=== PATIENT | female | born 1940 | race African-American/Black ===

== ENCOUNTER 2023-06-02 12:15 | Inpatient (IN) | payer MEDICARE, OTHER ==
[~2023-06-02] VITALS: Ht 162.6 cm; Wt 66.7 kg
[2023-06-02] MEDS ORDERED: BUSP10TA3 PO (12:41)
[2023-06-02] MEDS ORDERED: SERT100T PO (12:41)
[2023-06-02] MEDS ORDERED: DONE5TAB34 PO (12:41)
[2023-06-02] MEDS ORDERED: LOSA50TA39 PO (12:41)
[2023-06-02] MEDS ORDERED: QUET25TA PO (12:41)
[2023-06-02 12:48] LABS: BASOPHILS % (AUTO) 0.2 % (0.0-2.0); EOSINOPHILS # (AUTO) 0.1 K/uL (0.0-0.7); EOSINOPHILS % (AUTO) 0.8 % (0.0-7.0); HEMATOCRIT 38.4 % (31.2-41.9); HEMOGLOBIN 12.6 g/dL (10.9-14.3); LYMPHOCYTES # (AUTO) 1.6 K/uL (0.8-4.8); LYMPHOCYTES % (AUTO) 17.1 % (20.5-51.5); MEAN CORPUSCULAR HEMOGLOBIN 31.3 uug (24.7-32.8); MEAN CORPUSCULAR HGB CONC 33 g/dL (32.3-35.6); MEAN CORPUSCULAR VOLUME 95.2 fL (75.5-95.3); MONOCYTES # (AUTO) 0.7 K/uL (0.1-1.30); MONOCYTES % (AUTO) 7.4 % (0.0-11.0); NEUTROPHILS # (AUTO) 6.9 K/uL (1.8-8.9); NEUTROPHILS % (AUTO) 74.5 % (38.5-71.5); PLATELET COUNT (AUTO) 315 K/uL (179-408); RED BLOOD CELL COUNT(AUTO) 4.03 MIL/uL (3.63-4.92); WHITE BLOOD COUNT (AUTO) 9.3 K/uL (3.8-11.8)
[2023-06-02 13:12] LABS: DIFFERENTIAL COMMENT 1
[2023-06-02 13:22] LABS: ALANINE AMINOTRANSFERASE 23 U/L (14-59); ALKALINE PHOSPHATASE 121 U/L (50-136); ASPARTATE AMINOTRANSFERASE 32 U/L (15-37); BILIRUBIN,DIRECT 0.1 mg/dL (0.0-0.2); BILIRUBIN,TOTAL 0.5 mg/dL (0.2-1.0); CARBON DIOXIDE 27 mmol/L (21-32); CHLORIDE 107 mmol/L (98-107); CREATININE 1.3 mg/dL (0.6-1.3); GLUCOSE 101 mg/dL (74-106); POTASSIUM 4.1 mmol/L (3.5-5.1); SODIUM SERUM 144 mmol/L (136-145); TOTAL PROTEIN, SERUM 7.1 g/dL (6.4-8.2); UREA NITROGEN, BLOOD 21 mg/dL (7-18)
[2023-06-02 13:36] LABS: CALCIUM 9.8 mg/dL (8.5-10.1)
[2023-06-02] MEDS ORDERED: HYDROCODONE/APAP 5-325MG TABLET PO PRN (18:15)
[2023-06-02] MEDS ORDERED: TEMAZEPAM 15 MG CAPSULE PO PRN (18:15)
[2023-06-02] MEDS ORDERED: MAGNESIUM HYDROXIDE 30 ML LIQUID UDC PO PRN (18:15)
[2023-06-02] MEDS ORDERED: ONDANSETRON 4 MG/2 ML VIAL IV PRN (18:15)
[2023-06-02] MEDS ORDERED: ACETAMINOPHEN 325 MG TABLET PO PRN (18:15)
[2023-06-02 21:20] VITALS: BP 142/68; TEMP 98.5; O2SAT 96
[2023-06-02] MEDS: QUETIAPINE FUMARATE 25 MG TABLET PO SCH (21:36)
[2023-06-02] MEDS: IV 1/2NS 1000 ML 1,000 ML IV PRN (23:03)
[2023-06-03 05:00] VITALS: BP 119/62; TEMP 97.7; O2SAT 98
[2023-06-03] MEDS: PANTOPRAZOLE SODIUM 40 MG TABLET.DR PO SCH (06:03)
[2023-06-03 06:37] LABS: BASOPHILS % (AUTO) 0.3 % (0.0-2.0); EOSINOPHILS # (AUTO) 0.2 K/uL (0.0-0.7); EOSINOPHILS % (AUTO) 2.1 % (0.0-7.0); LYMPHOCYTES # (AUTO) 3.1 K/uL (0.8-4.8); LYMPHOCYTES % (AUTO) 37.4 % (20.5-51.5); MEAN CORPUSCULAR HEMOGLOBIN 31.7 uug (24.7-32.8); MEAN CORPUSCULAR HGB CONC 33 g/dL (32.3-35.6); MEAN CORPUSCULAR VOLUME 95.3 fL (75.5-95.3); MONOCYTES # (AUTO) 0.6 K/uL (0.1-1.30); MONOCYTES % (AUTO) 7.8 % (0.0-11.0); NEUTROPHILS # (AUTO) 4.4 K/uL (1.8-8.9); NEUTROPHILS % (AUTO) 52.4 % (38.5-71.5); PLATELET COUNT (AUTO) 308 K/uL (179-408); RED BLOOD CELL COUNT(AUTO) 3.78 MIL/uL (3.63-4.92); RED CELL DISTRIBUTION WIDTH 14.1 % (12.3-17.7); WHITE BLOOD COUNT (AUTO) 8.3 K/uL (3.8-11.8)
[2023-06-03 06:54] LABS: DIFFERENTIAL COMMENT 1
[2023-06-03 06:58] LABS: THYROID STIMULATING HORMONE 1.515 mIU/mL (0.358-3.740)
[2023-06-03 07:06] LABS: ALANINE AMINOTRANSFERASE 20 U/L (14-59); ALBUMIN 2.7 g/dL (3.4-5.0); ALKALINE PHOSPHATASE 107 U/L (50-136); BILIRUBIN,TOTAL 0.5 mg/dL (0.2-1.0); CALCIUM 9.3 mg/dL (8.5-10.1); CARBON DIOXIDE 27 mmol/L (21-32); CHLORIDE 108 mmol/L (98-107); CREATINE KINASE, TOTAL 295 U/L (26-192); CREATININE 1.3 mg/dL (0.6-1.3); GLUCOSE 88 mg/dL (74-106); MAGNESIUM 2.2 mg/dL (1.8-2.4); NT-PRO BNP 35 pg/mL (0-125); PHOSPHOROUS 3.8 mg/dL (2.5-4.9); POTASSIUM 4.1 mmol/L (3.5-5.1); SODIUM SERUM 141 mmol/L (136-145); TOTAL PROTEIN, SERUM 6.3 g/dL (6.4-8.2); UREA NITROGEN, BLOOD 25 mg/dL (7-18)
[2023-06-03 07:47] LABS: ASPARTATE AMINOTRANSFERASE 28 U/L (15-37); CHOLESTEROL 163 mg/dL (<200); HDL CHOLESTEROL 56 mg/dL (40-60); TRIGLYCERIDES 72 MG/DL (30-150)
[2023-06-03] MEDS: busPIRone 10 MG TABLET PO SCH ×2 (08:30→17:37)
[2023-06-03] MEDS: SERTRALINE HCL 100 MG TABLET PO SCH (08:30)
[2023-06-03] MEDS: CARISOPRODOL 350 MG TABLET PO PRN (15:23)
[2023-06-03 16:04] VITALS: BP 102/65; TEMP 97.5; O2SAT 96
[2023-06-03] MEDS: DONEPEZIL 5 MG TABLET PO SCH (17:37)
[2023-06-03 19:00] VITALS: BP 129/64; TEMP 98; O2SAT 99
[2023-06-03] MEDS: QUETIAPINE FUMARATE 25 MG TABLET PO SCH (21:00)
[2023-06-03] MEDS: DOCUSATE SODIUM 100 MG CAPSULE PO SCH (21:01)
[2023-06-04 05:42] VITALS: BP 129/66; TEMP 98.6; O2SAT 99
[2023-06-04 06:54] LABS: BASOPHILS % (AUTO) 0.2 % (0.0-2.0); EOSINOPHILS # (AUTO) 0.2 K/uL (0.0-0.7); EOSINOPHILS % (AUTO) 2.1 % (0.0-7.0); HEMATOCRIT 31.7 % (31.2-41.9); HEMOGLOBIN 10.9 g/dL (10.9-14.3); LYMPHOCYTES # (AUTO) 2.9 K/uL (0.8-4.8); LYMPHOCYTES % (AUTO) 34.7 % (20.5-51.5); MEAN CORPUSCULAR HEMOGLOBIN 32.7 uug (24.7-32.8); MEAN CORPUSCULAR HGB CONC 35 g/dL (32.3-35.6); MONOCYTES # (AUTO) 0.5 K/uL (0.1-1.30); MONOCYTES % (AUTO) 5.9 % (0.0-11.0); NEUTROPHILS # (AUTO) 4.8 K/uL (1.8-8.9); NEUTROPHILS % (AUTO) 57.1 % (38.5-71.5); PLATELET COUNT (AUTO) 264 K/uL (179-408); RED BLOOD CELL COUNT(AUTO) 3.33 MIL/uL (3.63-4.92); RED CELL DISTRIBUTION WIDTH 14.2 % (12.3-17.7); WHITE BLOOD COUNT (AUTO) 8.5 K/uL (3.8-11.8)
[2023-06-04 07:20] LABS: DIFFERENTIAL COMMENT 1
[2023-06-04 07:23] LABS: CALCIUM 8.6 mg/dL (8.5-10.1); CARBON DIOXIDE 25 mmol/L (21-32); CHLORIDE 107 mmol/L (98-107); CREATINE KINASE, TOTAL 129 U/L (26-192); CREATININE 1.2 mg/dL (0.6-1.3); GLUCOSE 84 mg/dL (74-106); MAGNESIUM 1.9 mg/dL (1.8-2.4); PHOSPHOROUS 3.2 mg/dL (2.5-4.9); POTASSIUM 4.2 mmol/L (3.5-5.1); SODIUM SERUM 139 mmol/L (136-145); UREA NITROGEN, BLOOD 22 mg/dL (7-18)
[2023-06-04] MEDS: PANTOPRAZOLE SODIUM 40 MG TABLET.DR PO SCH (09:31)
[2023-06-04] MEDS: busPIRone 10 MG TABLET PO SCH ×2 (09:31→17:20)
[2023-06-04] MEDS: CARISOPRODOL 350 MG TABLET PO PRN (09:31)
[2023-06-04] MEDS: SERTRALINE HCL 100 MG TABLET PO SCH (09:31)
[2023-06-04] MEDS: IV 1/2NS 1000 ML 1,000 ML IV PRN (09:46)
[2023-06-04 11:59] VITALS: BP 119/56; TEMP 98.2; O2SAT 97
[2023-06-04 16:17] VITALS: BP 117/49; TEMP 98.5; O2SAT 95
[2023-06-04] MEDS: DONEPEZIL 5 MG TABLET PO SCH (17:20)
[2023-06-04] MEDS: ENSURE ENLIVE (VAN) 240 ML LIQUID PO SCH (17:21)
[2023-06-04 20:00] VITALS: BP 127/54; TEMP 97.9; O2SAT 99
[2023-06-04] MEDS: QUETIAPINE FUMARATE 25 MG TABLET PO SCH (20:14)
[2023-06-04] MEDS: DOCUSATE SODIUM 100 MG CAPSULE PO SCH (20:14)
[2023-06-05 04:00] VITALS: BP 129/61; TEMP 97.7; O2SAT 100
[2023-06-05] MEDS: PANTOPRAZOLE SODIUM 40 MG TABLET.DR PO SCH (06:05)
[2023-06-05] MEDS: IV 1/2NS 1000 ML 1,000 ML IV PRN (06:13)
[2023-06-05] MEDS: ENSURE ENLIVE (VAN) 240 ML LIQUID PO SCH ×2 (08:30→17:39)
[2023-06-05] MEDS: busPIRone 10 MG TABLET PO SCH ×2 (08:31→17:39)
[2023-06-05] MEDS: SERTRALINE HCL 100 MG TABLET PO SCH (08:31)
[2023-06-05 10:40] VITALS: BP 154/81; TEMP 97.8; O2SAT 94
[2023-06-05] MEDS ORDERED: MEMANTINE HCL 5 MG TABLET PO SCH (12:44)
[2023-06-05 14:57] VITALS: BP 143/65; TEMP 97.8
[2023-06-05] MEDS ORDERED: MEMA5TAB42 PO (15:29)
[2023-06-05] MEDS ORDERED: DONE5TAB34 PO (15:29)
[2023-06-05] MEDS ORDERED: NEOMY/BACITRAC/POLYMI OINT 28.35 GM TUBE TOP SCH (17:00)
[2023-06-05] MEDS ORDERED: DONEPEZIL 10 MG TABLET PO SCH (21:00)
[2023-06-05] MEDS ORDERED: DONEPEZIL 5 MG TABLET PO SCH (21:00)
== END 2023-06-05 19:00 | disposition home health service (06) | DRG 56 ==
LOC: ER 12:18 → MEDSURG3 20:54
PROVIDERS: ADMIT Internal Medicine; ATTEND Student in an Organized Health Care Education/Training Program
DX: G91.2 (Idiopathic) normal pressure hydrocephalus (principal); N17.0 Acute kidney failure with tubular necrosis; E44.0 Moderate protein-calorie malnutrition; F02.83 Dementia in other diseases classified elsewhere, unspecified severity, with mood disturbance; D68.69 Other thrombophilia; F02.84 Dementia in other diseases classified elsewhere, unspecified severity, with anxiety; G93.40 Encephalopathy, unspecified; R62.7 Adult failure to thrive; Z66 Do not resuscitate; E88.09 Other disorders of plasma-protein metabolism, not elsewhere classified; F32.A Depression, unspecified; G30.9 Alzheimer's disease, unspecified; I10 Essential (primary) hypertension; Z74.09 Other reduced mobility; F41.9 Anxiety disorder, unspecified; Z68.25 Body mass index [BMI] 25.0-25.9, adult; Z91.81 History of falling
CPT/HCPCS: 36415; 70450; 71045; 72170; 73551; 73560; 83735; 84100; 84443; 84484; 85025; 93005; A4663; A6209; A6213; G0378